=== PATIENT | female | born 1965 | race Caucasian/White ===

== ENCOUNTER 2022-12-21 19:10 | Emergency (ER) | payer OTHER ==
[2022-12-21] MEDS ORDERED: Cyclobenzaprine 10 MG Tab PO ONE (19:11)
== END 2022-12-21 20:45 | disposition home or self-care (01) ==
LOC: FB.ED 19:10
DX: S13.4XXS Sprain of ligaments of cervical spine, sequela (principal); S49.91XS Unspecified injury of right shoulder and upper arm, sequela; Z91.048 Other nonmedicinal substance allergy status; V89.2XXA Person injured in unspecified motor-vehicle accident, traffic, initial encounter
CPT/HCPCS: 99283; A9270-GY

== ENCOUNTER 2023-01-02 18:22 | Emergency (ER) | payer OTHER ==
[2023-01-02] MEDS ORDERED: Ketorolac 30 MG/ML SDV IM ONE (19:27)
[2023-01-02] MEDS: Cyclobenzaprine 10 MG Tab PO ONE ×2 (19:38→20:36)
== END 2023-01-02 20:33 | disposition home or self-care (01) ==
LOC: FB.ED 18:22
DX: M16.11 Unilateral primary osteoarthritis, right hip (principal); Z91.048 Other nonmedicinal substance allergy status
CPT/HCPCS: 73090-RT; 73110-RT; 96372; 99283; A9270-GY; J1885